=== PATIENT | male | born 1995 ===

== ENCOUNTER 2024-01-04 16:03 | Emergency (ER) | payer OTHER ==
[2024-01-04 16:13] VITALS: BP 110/73; PULSE 80; RESP 18; TEMP 98.4; BMI 25.0
[2024-01-04] MEDS ORDERED: DIPHTH,PERTUSS(ACELL),TET 0.5 ML DISP.SYRIN IM ONE (17:27)
[2024-01-04] MEDS: DIPHTH,PERTUSS(ACELL),TET 0.5 ML DISP.SYRIN IM ONE (17:28)
[2024-01-04 21:24] LABS: HIV INTERPRETATION NEGATIVE (NEGATIVE)
== END 2024-01-04 17:44 | disposition home or self-care (01) ==
LOC: JERFT 16:03 → JER 16:03 → JERFT 17:44
PROC: 3E0234Z Introduction of Serum, Toxoid and Vaccine into Muscle, Percutaneous Approach (ICD-10-PCS; principal; 2024-01-04)
DX: S61.230A Puncture wound without foreign body of right index finger without damage to nail, initial encounter (principal); W46.0XXA Contact with hypodermic needle, initial encounter; Z23 Encounter for immunization
CPT/HCPCS: 36415; 86803; 87389; 90715; 99284-25